=== PATIENT | female | born 1985 | race Caucasian/White ===

== ENCOUNTER 2017-12-23 13:42 | Emergency (ER) | payer SELFPAY ==
[2017-12-23 15:00] LABS: URINE HCG POC HCG NEGATIVE (Negative)
[2017-12-23] MEDS ORDERED: ACETAMINOPHEN 500 MG TABLET PO (15:15)
[2017-12-23] MEDS ORDERED: KETOROLAC 60 MG/2 ML INJ. IM (15:15)
[2017-12-23] MEDS ORDERED: ONDANSETRON ODT 4 MG TAB.RAPDIS. PO (15:15)
[2017-12-23 15:16] LABS: BILIRUBIN,URINE NEGATIVE (NEG); CLARITY,URINE CLEAR; COLOR,URINE YELLOW; GLUCOSE,URINE NEGATIVE (NEG); NITRITE,URINE NEGATIVE (NEG); PROTEIN,URINE NEGATIVE (NEG-TRACE); UROBILINOGEN,URINE 0.2 mg/dL (0.2 mg/dL)
[2017-12-23 15:23] LABS: BACTERIA,URINE MANY /HPF (0-FEW); BARBITURATES POS (NEG); BENZODIAZEPINES NEG (NEG); CANNABINOIDS POS (NEG); COCAINE NEG (NEG); METHADONE NEG (NEG); OPIATES NEG (NEG); PHENCYCLIDINE NEG (NEG); RBC,URINE 0 /HPF (0-2); SQUAMOUS EPITHELIAL CELL,UR MANY /LPF
[2017-12-23 15:24] LABS: AMPHETAMINE/METHAMPHETAMINE NEG (NEG); ETHANOL, URINE NEG (NEG)
== END 2017-12-23 15:20 | disposition left against medical advice (07) ==
LOC: ER 13:42
DX: K02.9 Dental caries, unspecified (principal); K04.7 Periapical abscess without sinus; F11.20 Opioid dependence, uncomplicated; Z88.1 Allergy status to other antibiotic agents; Z88.5 Allergy status to narcotic agent; Z90.49 Acquired absence of other specified parts of digestive tract; Z90.89 Acquired absence of other organs; Z98.890 Other specified postprocedural states
CPT/HCPCS: 80307; 81001; 81025; 87086; 99284